=== PATIENT | male | born 2000 | race Caucasian/White ===

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

== ENCOUNTER → 2022-01-17 | Outpatient (CLI) | payer OTHER ==
[2022-01-17 17:52] LABS: BASOPHILS ABSOLUTE AUTO 0.05 K/mm3 (0.00-0.23); BASOPHILS PERCENT AUTO 0 % (0-2); EOSINOPHILS PERCENT AUTO 1 % (0-6); Hematocrit 46.4 % (37.0-53.0); Hemoglobin 15.6 g/dL (13.5-17.5); IMMATURE GRAN ABSOLUTE AUTO 0.05 K/mm3 (0.00-0.10); IMMATURE GRAN PERCENT AUTO 0 % (0-1); LYMPHOCYTES ABSOLUTE AUTO 2.34 K/mm3 (0.84-5.20); LYMPHOCYTES PERCENT AUTO 16 % (21-46); MONOCYTES ABSOLUTE AUTO 1.35 K/mm3 (0.16-1.47); MONOCYTES PERCENT AUTO 9 % (4-13); Mean Corpuscular HGB 28.7 pg (26.0-34.0); Mean Corpuscular HGB Conc 33.6 g/dL (31.5-36.5); Mean Corpuscular Volume 86 fL (80-100); Mean Platelet Volume 8.9 fL (9.1-12.4); NEUTROPHILS ABSOLUTE AUTO 10.76 K/mm3 (1.96-9.15); NEUTROPHILS PERCENT AUTO 73 % (41-73); Platelet Count 363 K/mm3 (150-400); RDW Coefficient Variation 13.6 % (11.7-14.2); RDW Standard Deviation 42.1 fL (35.1-46.3); Red Blood Cell Count 5.43 M/mm3 (4.30-5.90); White Blood Cell Count 14.75 K/mm3 (4.00-11.30)
== END | disposition home or self-care (01) ==
LOC: LAB SHORT 17:47 → LAB 17:47
PROVIDERS: Physician Assistant
DX: R10.2 Pelvic and perineal pain (principal)
CPT/HCPCS: 85025

== ENCOUNTER 2022-03-15 23:14 | Inpatient (IN) | payer OTHER ==
[~2022-03-15] VITALS: Ht 182.9 cm; Wt 153.5 kg
[2022-03-16 00:31] LABS: BASOPHILS ABSOLUTE AUTO 0.04 K/mm3 (0.00-0.23); BASOPHILS PERCENT AUTO 0 % (0-2); EOSINOPHILS ABSOLUTE AUTO 0.01 K/mm3 (0.00-0.68); EOSINOPHILS PERCENT AUTO 0 % (0-6); Hematocrit 42.3 % (37.0-53.0); Hemoglobin 14.4 g/dL (13.5-17.5); IMMATURE GRAN ABSOLUTE AUTO 0.07 K/mm3 (0.00-0.10); IMMATURE GRAN PERCENT AUTO 1 % (0-1); LYMPHOCYTES ABSOLUTE AUTO 1.13 K/mm3 (0.84-5.20); LYMPHOCYTES PERCENT AUTO 9 % (21-46); MONOCYTES ABSOLUTE AUTO 1.03 K/mm3 (0.16-1.47); MONOCYTES PERCENT AUTO 8 % (4-13); Mean Corpuscular HGB 28.8 pg (26.0-34.0); Mean Corpuscular Volume 85 fL (80-100); NEUTROPHILS ABSOLUTE AUTO 10.57 K/mm3 (1.96-9.15); NEUTROPHILS PERCENT AUTO 82 % (41-73); Platelet Count 231 K/mm3 (150-400); RDW Coefficient Variation 13.8 % (11.7-14.2); RDW Standard Deviation 42.7 fL (35.1-46.3); White Blood Cell Count 12.85 K/mm3 (4.00-11.30)
[2022-03-16 00:49] LABS: Albumin, Blood 3.2 g/dL (3.4-5.0); Albumin/Globulin Ratio 0.8 (0.8-1.8); Bilirubin, Total 0.8 mg/dL (0.1-1.0); Bun/Creatinine Ratio 10.6 (12.0-20.0); Calcium, Blood 8.5 mg/dL (8.5-10.1); Creatinine, Blood 0.85 mg/dL (0.60-1.20); Globulin, Blood 3.9 g/dL (2.2-4.0); Potassium, Blood 3.5 mmol/L (3.5-5.5); Total Protein, Blood 7.1 g/dL (6.4-8.2)
[2022-03-16] MEDS ORDERED: THERA-D2000 UNIT PO (04:54)
--- NOTE | 2022-03-16 04:57 | NUR ---
PT ARRIVED TO MEDICAL FLOOR VIA WC AT 0310 AND TX IND TO BED. PT A/O X 4 PLEASANT AND COOPERATIVE. PT FEBRILE AT 102.9. TYLENOL GIVEN PRIOR TO COMING TO FLOOR PT DENIES CHILLS OR PAIN AT THIS TIME BUT DOES C/OF NAUSEA AND REQUESTED NAUSEA MEDICATION. CALL PLACED TO DR. MERINO WITH COMPLAINTS AND RECEIVED CLARIFICATION ON ANTIBIOTIC TX. DR. MERINO GAVE ORDER TO CHANGE ZOFRAN TO 4 MG IV Q 4 PRN AND GIVE DOSE NOW AND TO START ANCEF 1 GRAM IV NOW. CALLED AGA IN PHARMACY TO VERIFY PT HAD NOT ALREADY RECEIVED ANCEF IN ER AND HE REPORTED HE WOULD PLACE ER ORDER OF ANCEF 1 GRAM TO START Q6. PT GIVEN MEDICATIONS VERIFIED ANCEF IS COMPATIBLE WITH LACTATED RINGERS. PT REPORTED NAUSEA STILL THERE POST ADMINISTRATION BUT HE IS ABLE TO KEEP WATER DOWN AT THIS TIME AND NAUSEA IS TOLERABLE. PT TEMP RECHECKED AND IS 102.7 ORALLY. PT AGREEABLE TO ICE PACKS PLACED UNDER ARMS WHICH ARE BEING PLACED AT THIS TIME. NO OTHER CONCERNS AT THIS TIME BY PATIENT. RASH OF ABD OUTLINED WITH SKIN MARKER AND PHOTOS TAKEN OF RASH.
[2022-03-16 05:19] LABS: BASOPHILS ABSOLUTE AUTO 0.02 K/mm3 (0.00-0.23); BASOPHILS PERCENT AUTO 0 % (0-2); EOSINOPHILS ABSOLUTE AUTO 0.01 K/mm3 (0.00-0.68); EOSINOPHILS PERCENT AUTO 0 % (0-6); Hematocrit 42.7 % (37.0-53.0); Hemoglobin 13.9 g/dL (13.5-17.5); IMMATURE GRAN ABSOLUTE AUTO 0.06 K/mm3 (0.00-0.10); IMMATURE GRAN PERCENT AUTO 1 % (0-1); LYMPHOCYTES ABSOLUTE AUTO 1.27 K/mm3 (0.84-5.20); LYMPHOCYTES PERCENT AUTO 10 % (21-46); MONOCYTES ABSOLUTE AUTO 1.07 K/mm3 (0.16-1.47); MONOCYTES PERCENT AUTO 8 % (4-13); Mean Corpuscular HGB 28.1 pg (26.0-34.0); Mean Corpuscular HGB Conc 32.6 g/dL (31.5-36.5); Mean Corpuscular Volume 86 fL (80-100); NEUTROPHILS ABSOLUTE AUTO 10.29 K/mm3 (1.96-9.15); NEUTROPHILS PERCENT AUTO 81 % (41-73); Platelet Count 226 K/mm3 (150-400); RDW Standard Deviation 44.3 fL (35.1-46.3); Red Blood Cell Count 4.94 M/mm3 (4.30-5.90); White Blood Cell Count 12.72 K/mm3 (4.00-11.30)
[2022-03-16 05:55] LABS: Bun/Creatinine Ratio 9.4 (12.0-20.0); Calcium, Blood 8.4 mg/dL (8.5-10.1); Creatinine, Blood 0.86 mg/dL (0.60-1.20); Potassium, Blood 3.8 mmol/L (3.5-5.5)
--- NOTE | 2022-03-16 16:03 | NUR ---
PT IS A/OX4, PLEASANT AND COOPERATIVE. THE PT IS UP WITH MINIMAL ASSIST TO THE BATHRROM. THE PT SPIKED FEVERS T/O THE DAY. PT WAS GIVEN TYLENOL AND ICE PACKS TO HELP HIM COOL DOWN. PTS ABD IS VERY TENDER TO TOUCH, REDNESS IN ABD PANIS OUTLINED BLISTERS ARE APPEARING THIS AFTERNOON. MOTHER IS AT THE BEDSIDE. WILL CONTINUE TO MONITOR AND ASSESS FOR CHANGES
--- NOTE | 2022-03-17 04:24 | NUR ---
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 PLEASANT AND COOPERATIVE WITH CARE. CONTINUES TO RUN LOW-GRADE FEVER. C/O PAIN/DISCOMFORT AT [facility] SITE RELIEVED WITH PO ANALGESICS. VSS OTHERWISE. CONTINUES WITH IV ABx. DUE FOR LABS THIS AM. WILL REPORT TO ONCZAK SOLIS.
[2022-03-17 05:19] LABS: BASOPHILS ABSOLUTE AUTO 0.03 K/mm3 (0.00-0.23); BASOPHILS PERCENT AUTO 0 % (0-2); EOSINOPHILS ABSOLUTE AUTO 0.09 K/mm3 (0.00-0.68); EOSINOPHILS PERCENT AUTO 1 % (0-6); Hematocrit 41.2 % (37.0-53.0); Hemoglobin 13.2 g/dL (13.5-17.5); IMMATURE GRAN ABSOLUTE AUTO 0.04 K/mm3 (0.00-0.10); IMMATURE GRAN PERCENT AUTO 0 % (0-1); LYMPHOCYTES ABSOLUTE AUTO 2.22 K/mm3 (0.84-5.20); LYMPHOCYTES PERCENT AUTO 22 % (21-46); MONOCYTES ABSOLUTE AUTO 1.41 K/mm3 (0.16-1.47); MONOCYTES PERCENT AUTO 14 % (4-13); Mean Corpuscular Volume 87 fL (80-100); Mean Platelet Volume 9.2 fL (9.1-12.4); NEUTROPHILS ABSOLUTE AUTO 6.41 K/mm3 (1.96-9.15); NEUTROPHILS PERCENT AUTO 63 % (41-73); Platelet Count 217 K/mm3 (150-400); RDW Coefficient Variation 14.1 % (11.7-14.2); RDW Standard Deviation 45.7 fL (35.1-46.3); Red Blood Cell Count 4.72 M/mm3 (4.30-5.90)
--- NOTE | 2022-03-17 16:35 | NUR ---
SHIFT SUMMARY PATIENT DENIES PAIN, MEDICATED FOR NAUSEA X1, DENIES SHORTNESS OF BREATH. PATIENT AFEBRILE ENTIRE SHIFT. PATIENT MOM AT BEDSIDE MOST OF SHIFT. PATIENT IS IND IN ROOM. PATIENT EATING AND DRINKING WELL. REDNESS TO ABD AND PANNUS RECEEDING FROM LINE DRAWN AROUND IT. MRSA NARES SWAB DONE, AWAITING RESULTS. IV ABX CHANGED TO VANCO. PATIENT IS PLEASANT AND COOPERATIVE WITH CARE.
--- NOTE | 2022-03-18 05:58 | NUR ---
Shift Summary Pt AOx4, independant, VSS. Recieving IV ABX for cellulitis, plan for a few more days of IV ABX then D/C home with oral ABX. R hand IV became swollen and tender, put new IV in L forearm. Pleasant and cooperative with care.
[2022-03-18 09:47] LABS: BASOPHILS ABSOLUTE AUTO 0.02 K/mm3 (0.00-0.23); BASOPHILS PERCENT AUTO 0 % (0-2); EOSINOPHILS ABSOLUTE AUTO 0.28 K/mm3 (0.00-0.68); EOSINOPHILS PERCENT AUTO 3 % (0-6); Hematocrit 42.7 % (37.0-53.0); Hemoglobin 14.1 g/dL (13.5-17.5); IMMATURE GRAN ABSOLUTE AUTO 0.04 K/mm3 (0.00-0.10); IMMATURE GRAN PERCENT AUTO 1 % (0-1); LYMPHOCYTES PERCENT AUTO 17 % (21-46); MONOCYTES ABSOLUTE AUTO 0.98 K/mm3 (0.16-1.47); MONOCYTES PERCENT AUTO 11 % (4-13); Mean Corpuscular HGB 28.1 pg (26.0-34.0); Mean Corpuscular Volume 85 fL (80-100); Mean Platelet Volume 9.1 fL (9.1-12.4); NEUTROPHILS ABSOLUTE AUTO 5.95 K/mm3 (1.96-9.15); NEUTROPHILS PERCENT AUTO 68 % (41-73); Platelet Count 284 K/mm3 (150-400); RDW Coefficient Variation 13.7 % (11.7-14.2); RDW Standard Deviation 42.6 fL (35.1-46.3); Red Blood Cell Count 5.02 M/mm3 (4.30-5.90); White Blood Cell Count 8.77 K/mm3 (4.00-11.30)
[2022-03-18 10:05] LABS: Vancomycin, Trough 14.7 ug/mL (5.0-10.0)
[2022-03-18 10:12] LABS: Albumin, Blood 2.9 g/dL (3.4-5.0); Anion Gap 6 mmol/L (6-16); Blood Urea Nitrogen 8 mg/dL (8-21); Bun/Creatinine Ratio 10.4 (12.0-20.0); CO2, Blood 29 mmol/L (21-32); Calcium, Blood 9.1 mg/dL (8.5-10.1); Chloride, Blood 103 mmol/L (98-108); Creatinine, Blood 0.77 mg/dL (0.60-1.20); Glomerular Filtration Rate 132 (60-); Glucose, Blood 96 mg/dL (70-99); Phosphorus, Blood 3.9 mg/dL (2.5-4.9); Sodium, Blood 138 mmol/L (136-145)
--- NOTE | 2022-03-18 16:51 | NUR ---
SHIFT SUMMARY PT'S MOTHER HAS BEEN AT THE BS MOST OF THE SHIFT. PT HAD NOT HAD A BOWEL MOVEMENT FOR A FEW DAYS, THE PROVIDER WAS NOTIFED AND BOWEL CARE WAS PRESCRIBED. PT USES THE CALL LIGHT WELL AND CAN MAKE HIS NEEDS KNOWN.
--- NOTE | 2022-03-19 03:40 | NUR ---
PT HERE FOR CELLULITIS IN LOWER ABD/PANNUS. PT A/OX4. VSS. PT RECEIVING IV ABX TX AWAITING D/C HOME WITH PO ABX. PT IS INDEPENDENT IN ROOM. PT STATED HAVING LOOSE BM 03/18/22 AT 1630. PT REFUSED BOWEL MEDS. PT IS COOPERATIVE AND PLEASANT TO CARE. PT IS CURRENTLY RESTING WITH SIDE RAILS UP, BED IN LOWEST POSITION, AND CALL LIGHT WITHIN REACH.
--- NOTE | 2022-03-19 06:17 | NUR ---
LAB RESULTS POSITIVE MRSA. PLACED ON ISOLATION PRECAUTIONS. CALL LIGHT IN REACH
[2022-03-19 09:59] LABS: Creatinine, Blood 0.61 mg/dL (0.60-1.20); Vancomycin, Trough 12.1 ug/mL (5.0-10.0)
--- NOTE | 2022-03-19 16:17 | NUR ---
SHIFT SUMMARY PT A&OX4 AND PLEASANT. INDEPENDENT IN ROOM. MOM AT BEDSIDE DURING AFTERNOON. PT HAD NO C/O PAIN. PT DOES STATE MILD TNDERNESS IN ABD AREA D/T CELLULITES. PT REFUSED BOWEL CARE DESPITE EDUCATION GIVEN. REMAINS AFEBRILE. VSS. NEW IV PLACED IN AFTERNOON, 03/19/22, D/T INFILTRATION. BED IN LOWEST POSITION AND CALL LIGHT IN REACH.
--- NOTE | 2022-03-20 04:20 | NUR ---
PT ADMITTED FOR CELLULITIS IN LOWER ABD. PT IN ON CONTACT ISO FOR MRSA IN NARES. PT A/OX4. VSS. PT IS INDEPENDENT IN ROOM. PT IS RECEIVING VANKOMYCIN Q8H. PT HAS IV IN RFA CURRENTLY TKO NS 25MLS/HR. PT MOST RECENT SERUM CREATNINE LAB IS 0.61 SO WILL CONTINUE TO MONITOR. PT IS CURRENTLY RESTING WITH BED RAILS UP, BED IN LOWEST POSITION, AND CALL LIGHT WITHIN REACH.
[2022-03-20 05:19] LABS: BASOPHILS ABSOLUTE AUTO 0.03 K/mm3 (0.00-0.23); BASOPHILS PERCENT AUTO 0 % (0-2); EOSINOPHILS ABSOLUTE AUTO 0.28 K/mm3 (0.00-0.68); EOSINOPHILS PERCENT AUTO 4 % (0-6); Hematocrit 43.3 % (37.0-53.0); Hemoglobin 14.2 g/dL (13.5-17.5); IMMATURE GRAN ABSOLUTE AUTO 0.07 K/mm3 (0.00-0.10); IMMATURE GRAN PERCENT AUTO 1 % (0-1); LYMPHOCYTES ABSOLUTE AUTO 2.57 K/mm3 (0.84-5.20); LYMPHOCYTES PERCENT AUTO 32 % (21-46); MONOCYTES ABSOLUTE AUTO 0.89 K/mm3 (0.16-1.47); MONOCYTES PERCENT AUTO 11 % (4-13); Mean Corpuscular HGB 27.6 pg (26.0-34.0); Mean Corpuscular HGB Conc 32.8 g/dL (31.5-36.5); Mean Corpuscular Volume 84 fL (80-100); Mean Platelet Volume 8.9 fL (9.1-12.4); NEUTROPHILS ABSOLUTE AUTO 4.18 K/mm3 (1.96-9.15); NEUTROPHILS PERCENT AUTO 52 % (41-73); Platelet Count 334 K/mm3 (150-400); RDW Coefficient Variation 13.4 % (11.7-14.2); RDW Standard Deviation 41.4 fL (35.1-46.3); Red Blood Cell Count 5.14 M/mm3 (4.30-5.90); White Blood Cell Count 8.02 K/mm3 (4.00-11.30)
[2022-03-20 10:44] LABS: Albumin, Blood 3.1 g/dL (3.4-5.0); Albumin/Globulin Ratio 0.7 (0.8-1.8); Bilirubin, Total 0.4 mg/dL (0.1-1.0); Bun/Creatinine Ratio 11.8 (12.0-20.0); Creatinine, Blood 0.68 mg/dL (0.60-1.20); Globulin, Blood 4.2 g/dL (2.2-4.0); Potassium, Blood 3.7 mmol/L (3.5-5.5); Total Protein, Blood 7.3 g/dL (6.4-8.2)
--- NOTE | 2022-03-20 16:11 | NUR ---
SHIFT SUMMARY NO ACUTE CHANGES. PT A&OX4 AND PLEASANT. NO C/O PAIN. PT DID NOT EAT ANY LUNCH. OFFERED SNACKS FROM [facility] BUT PT DECLINED ANY FOOD. MOM AND BEDSIDE. PT CONTINUES TO REFUSE BOWEL CARE. INDEPENDENT IN ROOM. BED IN LOWEST POSITION AND CALL LIGHT IN REACH.
[2022-03-20 17:26] LABS: BASOPHILS ABSOLUTE AUTO 0.06 K/mm3 (0.00-0.23); BASOPHILS PERCENT AUTO 1 % (0-2); EOSINOPHILS ABSOLUTE AUTO 0.25 K/mm3 (0.00-0.68); EOSINOPHILS PERCENT AUTO 3 % (0-6); Hematocrit 47.7 % (37.0-53.0); Hemoglobin 15.7 g/dL (13.5-17.5); IMMATURE GRAN ABSOLUTE AUTO 0.12 K/mm3 (0.00-0.10); IMMATURE GRAN PERCENT AUTO 1 % (0-1); LYMPHOCYTES PERCENT AUTO 31 % (21-46); MONOCYTES PERCENT AUTO 10 % (4-13); Mean Corpuscular HGB 27.8 pg (26.0-34.0); Mean Corpuscular HGB Conc 32.9 g/dL (31.5-36.5); Mean Corpuscular Volume 85 fL (80-100); Mean Platelet Volume 8.9 fL (9.1-12.4); NEUTROPHILS ABSOLUTE AUTO 4.92 K/mm3 (1.96-9.15); NEUTROPHILS PERCENT AUTO 54 % (41-73); Platelet Count 355 K/mm3 (150-400); RDW Coefficient Variation 13.3 % (11.7-14.2); RDW Standard Deviation 41.4 fL (35.1-46.3); Red Blood Cell Count 5.64 M/mm3 (4.30-5.90); White Blood Cell Count 9.05 K/mm3 (4.00-11.30)
[2022-03-20 17:52] LABS: Bun/Creatinine Ratio 12.6 (12.0-20.0); Calcium, Blood 9.3 mg/dL (8.5-10.1); Creatinine, Blood 0.63 mg/dL (0.60-1.20)
--- NOTE | 2022-03-21 04:19 | NUR ---
SHIFT SUMMARY NOC PT HERE FOR CELLULITIS IN LOWER LEFT ABD PANNUS AREA. PT ON CONTACT ISO FOR MRSA IN NARES BL. A/OX4. INDEPENDENT IN ROOM. IV IN LFA INFUSING NS TKO 25MLS/HR. PER PROVIDER PROGRESS NOTE PT EXPECTED TO BE SWITCHED TO PO ABX 03/21/22 ANTICIPATING D/C. PT HAS VANKO TROUGH SCHEDULED FOR 03/21/22 AT 0900. PT IS CURRENTLY RESTING WITH BED RAILS UP, BED IN LOWEST POSITION, AND CALL LIGHT WITHIN REACH.
[2022-03-21 09:23] LABS: Vancomycin, Trough 15.5 ug/mL (5.0-10.0)
[2022-03-21] MEDS ORDERED: SULTRIDS PO (12:44)
--- NOTE | 2022-03-21 15:03 | NUR ---
Discharge Summary A/Ox4, pleasant/cooperative. Independent. Discharging to home. Reviewed d/c papers with patient and mom at bedside. Return to work/school letter given to patient along with d/c paperwork. Declined to be escorted by staff via w/c, ambulated out. Personal belongings bagged by patient. Meds faxed to [facility].
== END 2022-03-21 15:00 | disposition home or self-care (01) | DRG 872 ==
LOC: ER 23:14 → MEDS 03-16 02:05
PROVIDERS: Emergency Medicine; Family Medicine; Internal Medicine; ADMIT Family Medicine
DX: A41.9 Sepsis, unspecified organism (principal); L03.311 Cellulitis of abdominal wall; Z68.42 Body mass index [BMI] 45.0-49.9, adult; F32.A Depression, unspecified; Z28.21 Immunization not carried out because of patient refusal; E65 Localized adiposity; E66.01 Morbid (severe) obesity due to excess calories; Z90.89 Acquired absence of other organs; Z88.8 Allergy status to other drugs, medicaments and biological substances; Z79.899 Other long term (current) drug therapy
CPT/HCPCS: 36415; 76705; 80048; 80053; 80069; 80202; 82565; 85025; 96374; 99284-25; A9270; J0690; J1650; J2405; J3370; J7030; J7050; J7120

== ENCOUNTER → 2023-08-27 | Outpatient (CLI) | payer OTHER ==
[~2023-08-27] MED LIST changes: +THERA-D2000 UNIT PO
== END | disposition home or self-care (01) ==
LOC: LAB 17:55 → LAB SHORT 17:55
DX: B35.3 Tinea pedis (principal); L30.9 Dermatitis, unspecified
CPT/HCPCS: 87220

== ENCOUNTER → 2023-11-05 | Outpatient (CLI) | payer OTHER | END | disposition home or self-care (01) | LOC: LAB SHORT 11:10 → LAB 11:10 | DX: L30.8 Other specified dermatitis (principal) | CPT/HCPCS: 88305; 88312 ==